=== PATIENT | female | born 1950 | race Caucasian/White ===

== ENCOUNTER 2016-12-17 06:52 | Observation (INO) | payer MEDICARE, MEDICAID ==
[~2016-12-17] VITALS: Ht 160 cm; Wt 80.1 kg
[~2016-12-17 06:52] MED LIST: ALPR2TAB5 PO; ASPI-515 PO; CALC1TAB2 PO; CHOL10003 PO; FERR142T13 PO; FLUO15CR TP; GEMF600T3 PO; GLIM4TAB2 PO; HYDR25TA6 PO; LOSA25TA5 PO; METF10002 PO; METO25TA35 PO; OMEG1CAP24 PO; OMEP40CA6 PO; SIMV40TA3 PO; VITAMIN B12 SL; ZOLP10TA5 PO
[2016-12-17 07:43] VITALS: BP 134/81
[2016-12-17] MEDS ORDERED: LACTATED RINGERS 1,000 ML IV SCH (07:48)
[2016-12-17] MEDS ORDERED: BUPIVACAINE/PF-EPI 0.5% 1:200K ONE (08:00)
[2016-12-17] MEDS ORDERED: FENTANYL PF 250 MCG/5ML ONE (08:58)
[2016-12-17] MEDS ORDERED: MIDAZOLAM 1 MG/ML, 2ML ONE (08:58)
[2016-12-17] MEDS ORDERED: NEOSTIGMINE 1 MG/ML, 10ML ONE (09:21)
[2016-12-17] MEDS ORDERED: GLYCOPYRROLATE 0.2MG/1ML ONE (09:21)
[2016-12-17] MEDS ORDERED: LABETALOL 5MG/ML ONE (09:21)
[2016-12-17] MEDS ORDERED: DEXAMETHASONE 4 MG/ML, 1ML ONE (09:21)
[2016-12-17] MEDS ORDERED: ROCURONIUM 10 MG/ML ONE ×3 (09:21)
[2016-12-17] MEDS ORDERED: CEFOTETAN 2 GM ONE (09:21)
[2016-12-17] MEDS ORDERED: ONDANSETRON 2MG/ML, 2ML ONE (09:21)
[2016-12-17] MEDS ORDERED: PROPOFOL 10 MG/ML, 20ML ONE (09:21)
[2016-12-17] MEDS ORDERED: LABETALOL 5MG/ML, 20ML IV PRN (09:30)
[2016-12-17] MEDS ORDERED: ACETAMINOPHEN 325 MG TABLET PO PRN (09:30)
[2016-12-17] MEDS ORDERED: MEPERIDINE/PF 25MG/0.5ML IVPush PRN (09:30)
[2016-12-17] MEDS ORDERED: ONDANSETRON 2MG/ML, 2ML IVPush PRN ×2 (09:30→14:00)
[2016-12-17] MEDS ORDERED: MIDAZOLAM 1 MG/ML, 2ML IV PRN (09:30)
[2016-12-17] MEDS ORDERED: OXYcodone 5 MG/5 ML ORAL.SOL UDC PO PRN (09:30)
[2016-12-17] MEDS ORDERED: PROMETHAZINE 25 MG/ML, 1ML IV PRN (09:30)
[2016-12-17] MEDS ORDERED: BUPIVACAINE/PF-EPI 0.5% 1:200K INFIL ONE (09:40)
[2016-12-17] MEDS ORDERED: OXYcodone 5 MG/5 ML ORAL.SOL UDC ONE (10:46)
[2016-12-17] MEDS ORDERED: FENTANYL PF 100 MCG/2ML ONE (10:46)
[2016-12-17] MEDS: FENTANYL PF 100 MCG/2ML IV PRN ×3 (10:50→11:14)
[2016-12-17] MEDS ORDERED: ACETAMINOPHEN 325 MG TABLET ONE (10:51)
[2016-12-17] MEDS ORDERED: ACETAMINOPHEN 650 MG/20.3 ML UDC ONE (10:51)
[2016-12-17] MEDS ORDERED: HYDROmorphone 2 MG/ML, 1ML ONE (11:27)
[2016-12-17] MEDS: HYDROmorphone 1 MG/ML, 1ML IV PRN ×4 (11:28→11:57)
[2016-12-17] MEDS ORDERED: IRON DEXTRAN IV PER PHARMACY IV PRN (11:30)
[2016-12-17] MEDS ORDERED: PROMETHAZINE 25 MG/ML, 1ML ONE (11:56)
[2016-12-17] MEDS ORDERED: IRON DEXTRAN COMPLEX 25 MG in SODIUM CHLORIDE 0.9% 50 ML IV ONE (12:00)
[2016-12-17] MEDS ORDERED: IRON DEXTRAN COMPLEX IV ONE (13:00)
[2016-12-17] MEDS ORDERED: SODIUM CHLORIDE 0.9% IV ONE (13:00)
[2016-12-17] MEDS: LACTATED RINGERS 1,000 ML IV SCH (13:19)
[2016-12-17] MEDS: HYDROmorphone 2MG TABLET PO PRN ×3 (13:48→22:34)
[2016-12-17] MEDS ORDERED: EPINEPHRINE 1 MG/ML, 1ML IVPush ONE ×2 (14:00)
[2016-12-17] MEDS ORDERED: HYDROmorphone 2 MG/ML, 1ML IV PRN (14:00)
[2016-12-17] MEDS ORDERED: TRAZODONE 100MG TABLET PO PRN (20:30)
[2016-12-17 21:30] VITALS: BP 133/69
[2016-12-17] MEDS: CALCIUM/VITAMIN D3 250-125 TABLET PO SCH (21:40)
[2016-12-17] MEDS: SIMVASTATIN 40 MG TABLET PO SCH (21:40)
[2016-12-17] MEDS: METOPROLOL TARTRATE 25 MG TABLET PO SCH (21:40)
[2016-12-17] MEDS: metFORMIN 500 MG TABLET PO SCH (21:41)
[2016-12-17] MEDS: GEMFIBROZIL 600 MG TABLET PO SCH (21:42)
[2016-12-18] VITALS: BP 112/63
[2016-12-18] MEDS: LACTATED RINGERS 1,000 ML IV SCH ×2 (01:49→14:19)
[2016-12-18 04:00] VITALS: BP 102/64
[2016-12-18] MEDS: HYDROmorphone 2MG TABLET PO PRN ×4 (05:28→21:42)
[2016-12-18 05:51] LABS: HEMOGLOBIN 8.7 g/dL (11.7-16.4)
[2016-12-18 06:41] LABS: BLOOD UREA NITROGEN 18 mg/dL (7-18)
[2016-12-18 06:52] VITALS: BP 98/54
[2016-12-18 07:38] LABS: ASPARTATE AMINO TRANSFERASE 132 U/L (15-37)
[2016-12-18 07:45] LABS: TOTAL IRON BINDING CAPACITY 763 mcg/dL (250-450)
[2016-12-18 07:53] VITALS: BP 105/63
[2016-12-18] MEDS: LOSARTAN 25MG TABLET PO SCH (07:53)
[2016-12-18] MEDS: METOPROLOL TARTRATE 25 MG TABLET PO SCH ×2 (07:54→20:16)
[2016-12-18] MEDS: HYDROCHLOROTHIAZIDE 25 MG TABLET PO SCH (07:54)
[2016-12-18] MEDS: GEMFIBROZIL 600 MG TABLET PO SCH ×2 (07:58→20:16)
[2016-12-18] MEDS: CHOLECALCIFEROL 1,000 UNIT TABLET PO SCH (07:58)
[2016-12-18] MEDS: metFORMIN 500 MG TABLET PO SCH ×2 (07:58→20:16)
[2016-12-18] MEDS: CALCIUM/VITAMIN D3 250-125 TABLET PO SCH ×2 (07:58→20:16)
[2016-12-18] MEDS: ASPIRIN 81 MG TABLET EC PO SCH (07:58)
[2016-12-18] MEDS: OMEPRAZOLE 20 MG CAPSULE.DR PO SCH (07:59)
[2016-12-18] MEDS: CYANOCOBALAMIN 1,000 MCG TABLET PO SCH (07:59)
[2016-12-18] MEDS: FLUOCINONIDE CRM 0.05%, 15GM TP SCH (08:03)
[2016-12-18] MEDS: FERROUS SULFATE 325 MG TABLET PO SCH (09:21)
[2016-12-18] MEDS: ALBUTEROL/IPRATROPIUM 2.5MG/0.5MG, 3 ML NPPB SCH ×4 (09:30→21:30)
[2016-12-18] MEDS ORDERED: OXYcodone/APAP 5/325MG TABLET PO PRN (10:00)
[2016-12-18] MEDS: KETOROLAC 10MG TABLET PO SCH ×3 (10:17→21:42)
[2016-12-18 13:02] VITALS: BP 104/58
[2016-12-18] MEDS: ALBUTEROL SULFATE 2.5 MG/3 ML NPPB SCH ×2 (19:40→23:00)
[2016-12-18] MEDS: SIMVASTATIN 40 MG TABLET PO SCH (20:16)
[2016-12-18 20:50] VITALS: BP 106/56
[2016-12-19] MEDS: ALBUTEROL/IPRATROPIUM 2.5MG/0.5MG, 3 ML NPPB SCH ×2 (02:00→05:30)
[2016-12-19] MEDS: LACTATED RINGERS 1,000 ML IV SCH ×2 (02:49→15:19)
[2016-12-19] MEDS: ALBUTEROL SULFATE 2.5 MG/3 ML NPPB SCH (03:00)
[2016-12-19 03:36] VITALS: BP 104/55
[2016-12-19] MEDS: KETOROLAC 10MG TABLET PO SCH (03:38)
[2016-12-19 04:49] LABS: HEMOGLOBIN 7.1 g/dL (11.7-16.4)
[2016-12-19 05:04] LABS: BLOOD UREA NITROGEN 32 mg/dL (7-18)
[2016-12-19 07:01] VITALS: BP 91/49
[2016-12-19] MEDS: CALCIUM/VITAMIN D3 250-125 TABLET PO SCH (07:38)
[2016-12-19] MEDS: CYANOCOBALAMIN 1,000 MCG TABLET PO SCH (07:38)
[2016-12-19] MEDS: metFORMIN 500 MG TABLET PO SCH (07:38)
[2016-12-19] MEDS: FERROUS SULFATE 325 MG TABLET PO SCH (07:38)
[2016-12-19] MEDS: OMEPRAZOLE 20 MG CAPSULE.DR PO SCH (07:39)
[2016-12-19] MEDS: GEMFIBROZIL 600 MG TABLET PO SCH (07:39)
[2016-12-19] MEDS: LOSARTAN 25MG TABLET PO SCH ×2 (07:39→07:42)
[2016-12-19] MEDS: ASPIRIN 81 MG TABLET EC PO SCH (07:39)
[2016-12-19] MEDS: METOPROLOL TARTRATE 25 MG TABLET PO SCH (07:40)
[2016-12-19] MEDS: HYDROCHLOROTHIAZIDE 25 MG TABLET PO SCH (07:40)
[2016-12-19] MEDS: CHOLECALCIFEROL 1,000 UNIT TABLET PO SCH (07:41)
[2016-12-19] MEDS: FLUOCINONIDE CRM 0.05%, 15GM TP SCH (07:41)
[2016-12-19] MEDS: HYDROmorphone 2MG TABLET PO PRN ×2 (07:41→15:41)
[2016-12-19] MEDS ORDERED: SODIUM CHLORIDE 0.9%, 500ML IVBOLUS ONE (09:30)
[2016-12-19] MEDS ORDERED: SODIUM CHLORIDE 0.9%, 500ML IV ONE (09:30)
[2016-12-19] MEDS ORDERED: HYDR2TAB13 PO (10:07)
[2016-12-19] MEDS ORDERED: PROM25SU34 PO (10:12)
[2016-12-19 12:17] VITALS: BP 124/60
[2016-12-19] MEDS ORDERED: OMNIPAQUE 350 MG/ML, 100ML BOTTLE ONE (17:30)
[2016-12-21 11:06] LABS: HGB A1C 5.6 %Hb (.)
== END 2016-12-19 18:22 | disposition home or self-care (01) ==
LOC: OUT 06:52 → 4NOR 13:07 → OUT 23:37 → 4NOR 23:37
PROVIDERS: ADMIT Surgery; ATTEND Surgery
DX: K80.10 Calculus of gallbladder with chronic cholecystitis without obstruction (principal); E11.9 Type 2 diabetes mellitus without complications; I10 Essential (primary) hypertension; R09.02 Hypoxemia; J98.11 Atelectasis; D50.9 Iron deficiency anemia, unspecified; D18.03 Hemangioma of intra-abdominal structures; M19.90 Unspecified osteoarthritis, unspecified site; G47.00 Insomnia, unspecified; E78.5 Hyperlipidemia, unspecified; K66.8 Other specified disorders of peritoneum; K66.0 Peritoneal adhesions (postprocedural) (postinfection); Z87.11 Personal history of peptic ulcer disease; Z80.3 Family history of malignant neoplasm of breast; Z80.6 Family history of leukemia
CPT/HCPCS: 36415; 47562; 71010; 71275; 80048; 80053; 82607; 82728; 82746; 82962; 83036; 83540; 83550; 84439; 84443; 85025; 88304; 96365; 96366; G0378; J1100; J1170; J1750; J2250; J2405; J2550; J2704; J2710; J3010; J7050; J7120; Q9967; J3490; S0074

== ENCOUNTER → 2017-01-05 | Outpatient (CLI) | payer MEDICARE, MEDICAID ==
[~2017-01-05] MED LIST changes: +HYDR2TAB13 PO; +PROM25SU34 PO
== END | disposition home or self-care (01) ==
LOC: CFH 08:07
PROVIDERS: ATTEND Family Medicine
DX: N83.291 Other ovarian cyst, right side (principal)
CPT/HCPCS: 76856

== ENCOUNTER 2018-04-07 05:09 | Inpatient (IN) | payer MEDICARE ==
[~2018-04-07] VITALS: Ht 160 cm; Wt 80.0 kg
[~2018-04-07 05:09] MED LIST changes: -HYDR2TAB13 PO; +HYDR2TAB29 PO
[2018-04-07] MEDS ORDERED: METF500T5 PO (05:36)
[2018-04-07] MEDS ORDERED: SODIUM CHLORIDE FLUSH 10ML SYR IVF ONE (06:00)
[2018-04-07] MEDS ORDERED: DIPHENHYDRAMINE 50 MG/ML, 1ML IVPush ONE (06:00)
[2018-04-07] MEDS ORDERED: MORPHINE SULFATE 4 MG/ML, 1ML IVPush PRN ×2 (06:00→18:00)
[2018-04-07] MEDS ORDERED: SODIUM CHLORIDE 0.9% 1,000ML IVBOLUS ONE ×2 (06:00→08:30)
[2018-04-07 06:03] LABS: MEAN CORPUSCULAR HEMOGLOBIN 29.7 pg (27.0-34.8); MEAN CORPUSCULAR HGB CONC 33.8 g/dL (32.4-35.8); MEAN CORPUSCULAR VOLUME 87.7 fL (80-100); MEAN PLATELET VOLUME 7.1 fL (7.4-10.4); PLATELET COUNT 363 x10^3/uL (130-400); RED BLOOD COUNT 3.39 x10^6/uL (3.82-5.3); RED CELL DISTRIBUTION WIDTH 13.1 % (9.6-15.2)
[2018-04-07 06:09] LABS: INTERNATIONAL NORMALIZED RATIO 1.15 (0.93-1.1); PROTHROMBIN TIME 11.9 Seconds (9.6-11.5)
[2018-04-07 06:14] LABS: ALBUMIN 2.4 g/dL (3.4-5.0); ANION GAP 12 mmol/L (5-15); CHLORIDE 95 mmol/L (98-107)
[2018-04-07] MEDS ORDERED: MORPHINE SULFATE 4 MG/ML, 1ML ONE (06:15)
[2018-04-07] MEDS ORDERED: DIPHENHYDRAMINE 50 MG/ML, 1ML ONE (06:15)
[2018-04-07 06:18] LABS: ALANINE AMINOTRANSFERASE 9 U/L (12-78); ALKALINE PHOSPHATASE 93 U/L (45-117); BILIRUBIN,TOTAL 0.4 mg/dL (0.2-1.0); CREATININE 1.15 mg/dL (0.55-1.02); TOTAL PROTEIN 6.4 g/dL (6.4-8.2)
[2018-04-07] MEDS ORDERED: SLOW MAG (06:26)
[2018-04-07] MEDS ORDERED: METO50TA82 PO (06:26)
[2018-04-07] MEDS ORDERED: LOSA50TA6 PO (06:26)
[2018-04-07] MEDS ORDERED: ASPI-515 PO (06:26)
[2018-04-07 06:43] LABS: MD YES
[2018-04-07 06:49] LABS: <RBC MORPHOLOGY> NORMAL; BAND#(MANUAL) 0.58 x10^3/uL; BANDS%(MANUAL) 4 % (0-7); LYMPH#(MANUAL) 2.34 x10^3/uL (1-3.4); LYMPHS% (MANUAL) 16 % (22-44); MONOS#(MANUAL) 1.17 x10^3/uL (0.3-2.7); MONOS% (MANUAL) 8 % (2-9); SEG#(MANUAL) 10.51 x10^3/uL (1.8-6.8); SEGS% (MANUAL) 72 % (42-75)
[2018-04-07 06:50] LABS: <PLATELET ESTIMATE> ADEQUATE; <PLT MORPHOLOGY> NORMAL PLT MORPH
[2018-04-07] MEDS ORDERED: OMNIPAQUE 350 MG/ML, 100ML BOTTLE ONE (07:00)
[2018-04-07] MEDS ORDERED: CEFOTETAN PMX 1GM/50ML 50 ML IV ONE (07:30)
[2018-04-07] MEDS ORDERED: METRONIDAZOLE PMX 500MG/100ML 100 ML IV ONE (07:30)
[2018-04-07] MEDS ORDERED: CEFOTETAN PMX 1GM/50ML 50 ML ONE (07:49)
[2018-04-07] MEDS: INSULIN LISPRO 100 UNITS/ML, PEN MEDIUM DOSE SS SQ-INSULIN SCH ×2 (10:30→16:30)
[2018-04-07] MEDS ORDERED: HYDROmorphone 1 MG/ML, 1ML IV PRN ×2 (10:30→18:00)
[2018-04-07] MEDS ORDERED: ONDANSETRON ODT 4 MG PO PRN (11:00)
[2018-04-07] MEDS: PIPERACILLIN/TAZO/PMX 4.5GM 100 ML IVPB SCH ×2 (12:00→17:45)
[2018-04-07] MEDS: SODIUM CHLORIDE 0.9% 1,000 ML IV SCH ×2 (12:00→20:00)
[2018-04-07] MEDS ORDERED: HYDROmorphone 2 MG/ML, 1ML ONE (12:14)
[2018-04-07 14:30] VITALS: BP 105/63
[2018-04-07] MEDS ORDERED: MIDAZOLAM 1 MG/ML, 2ML ONE (17:39)
[2018-04-07] MEDS ORDERED: FENTANYL PF 250 MCG/5ML ONE (17:39)
[2018-04-07] MEDS ORDERED: ROCURONIUM 10MG/ML,5ML ONE ×2 (17:40→21:50)
[2018-04-07] MEDS ORDERED: PROPOFOL 10 MG/ML, 20ML ONE (17:42)
[2018-04-07] MEDS ORDERED: WATER-INJECTION,STERILE 10 ML IV ONE (17:42)
[2018-04-07] MEDS ORDERED: CEFAZOLIN 1,000 MG ONE ×2 (17:42)
[2018-04-07] MEDS ORDERED: MEPERIDINE/PF 25MG/0.5ML IVPush PRN (18:00)
[2018-04-07] MEDS ORDERED: LABETALOL 5MG/ML, 20ML IV PRN (18:00)
[2018-04-07] MEDS ORDERED: ONDANSETRON ODT 8 MG PO PRN (18:00)
[2018-04-07] MEDS ORDERED: ONDANSETRON 2MG/ML, 2ML IV PRN (18:00)
[2018-04-07] MEDS ORDERED: PROMETHAZINE 12.5 MG SUPP PR ONE (18:00)
[2018-04-07] MEDS ORDERED: PROMETHAZINE 25 MG/ML, 1ML IV PRN (18:00)
[2018-04-07] MEDS ORDERED: FENTANYL PF 100 MCG/2ML IV PRN (18:00)
[2018-04-07] MEDS ORDERED: hydrALAzine 20 MG/ML, 1ML IV PRN (18:00)
[2018-04-07] MEDS ORDERED: OXYcodone 5 MG/5 ML ORAL.SOL UDC PO PRN (18:00)
[2018-04-07] MEDS ORDERED: PROMETHAZINE 25 MG SUPP PR ONE (18:00)
[2018-04-07] MEDS: METOPROLOL TARTRATE 50 MG TABLET PO SCH (18:38)
[2018-04-07 19:15] VITALS: BP 89/47
[2018-04-07] MEDS ORDERED: GLYCOPYRROLATE 0.2MG/1ML, 5ML ONE (19:53)
[2018-04-07] MEDS ORDERED: NEOSTIGMINE 1 MG/ML, 10ML ONE (19:53)
[2018-04-07] MEDS ORDERED: PHENYLEPHRINE 10 MG/ML ONE ×2 (20:10)
[2018-04-07] MEDS ORDERED: VASOPRESSIN 20 UNIT/ML, 1ML ONE (20:19)
[2018-04-07] MEDS ORDERED: ONDANSETRON 2MG/ML, 2ML ONE (20:28)
[2018-04-07] MEDS ORDERED: HYDROmorphone PCA 30 MG/30 ML IV PRN (23:00)
[2018-04-07 23:44] LABS: ANION GAP 11 mmol/L (5-15); CALCIUM 7.9 mg/dL (8.5-10.1); CHLORIDE 102 mmol/L (98-107); CREATININE 1.11 mg/dL (0.55-1.02)
[2018-04-08] MEDS ORDERED: SODIUM CHLORIDE 0.9%, 500ML IVBOLUS PRN
[2018-04-08 00:54] VITALS: BP 90/47
[2018-04-08] MEDS ORDERED: ONDANSETRON ODT 4 MG PO PRN (02:00)
[2018-04-08] MEDS: INSULIN LISPRO 100 UNITS/ML, PEN MEDIUM DOSE SS SQ-INSULIN SCH ×4 (02:10→21:32)
[2018-04-08] MEDS: SODIUM CHLORIDE 0.9% 1,000 ML IV SCH ×4 (02:40→21:27)
[2018-04-08] MEDS: PIPERACILLIN/TAZO/PMX 4.5GM 100 ML IVPB SCH ×4 (02:54→21:27)
[2018-04-08 04:57] LABS: MEAN CORPUSCULAR HEMOGLOBIN 29.7 pg (27.0-34.8); MEAN CORPUSCULAR HGB CONC 33.3 g/dL (32.4-35.8); MEAN CORPUSCULAR VOLUME 89.2 fL (80-100); MEAN PLATELET VOLUME 7.2 fL (7.4-10.4); PLATELET COUNT 309 x10^3/uL (130-400); RED BLOOD COUNT 2.73 x10^6/uL (3.82-5.3); RED CELL DISTRIBUTION WIDTH 13.1 % (9.6-15.2)
[2018-04-08 05:08] LABS: ANION GAP 12 mmol/L (5-15); CALCIUM 7.2 mg/dL (8.5-10.1); CHLORIDE 106 mmol/L (98-107)
[2018-04-08] MEDS: METOPROLOL TARTRATE 50 MG TABLET PO SCH ×2 (05:41→18:19)
[2018-04-08 05:49] LABS: MD YES
[2018-04-08 05:50] LABS: BAND#(MANUAL) 2.06 x10^3/uL; BANDS%(MANUAL) 14 % (0-7); LYMPH#(MANUAL) 1.03 x10^3/uL (1-3.4); LYMPHS% (MANUAL) 7 % (22-44); MONOS#(MANUAL) 0.88 x10^3/uL (0.3-2.7); MONOS% (MANUAL) 6 % (2-9); SEG#(MANUAL) 10.73 x10^3/uL (1.8-6.8); SEGS% (MANUAL) 73 % (42-75)
[2018-04-08 05:51] LABS: <PLATELET ESTIMATE> ADEQUATE; <PLT MORPHOLOGY> NORMAL PLT MORPH; <RBC MORPHOLOGY> NORMAL
[2018-04-08 08:22] VITALS: BP 94/51
[2018-04-08] MEDS: ENOXAPARIN 40 MG/0.4 ML SQ SCH (09:53)
[2018-04-08] MEDS: FAMOTIDINE 20 MG TABLET PO SCH ×2 (09:53→21:30)
[2018-04-08 12:42] VITALS: BP 101/57
[2018-04-08 18:19] VITALS: BP 97/57
[2018-04-09 00:53] VITALS: BP 97/46
[2018-04-09] MEDS: PIPERACILLIN/TAZO/PMX 4.5GM 100 ML IVPB SCH ×4 (03:34→22:03)
[2018-04-09] MEDS: SODIUM CHLORIDE 0.9% 1,000 ML IV SCH ×3 (03:34→17:20)
[2018-04-09] MEDS: INSULIN LISPRO 100 UNITS/ML, PEN MEDIUM DOSE SS SQ-INSULIN SCH ×5 (03:48→21:00)
[2018-04-09 06:12] VITALS: BP 96/60
[2018-04-09] MEDS: METOPROLOL TARTRATE 50 MG TABLET PO SCH ×4 (06:13→19:37)
[2018-04-09 07:15] VITALS: BP 109/61
[2018-04-09] MEDS: FAMOTIDINE 20 MG TABLET PO SCH ×2 (08:31→21:02)
[2018-04-09] MEDS: ENOXAPARIN 40 MG/0.4 ML SQ SCH (08:31)
[2018-04-09] MEDS ORDERED: HYDROmorphone 2MG TABLET PO PRN (11:00)
[2018-04-09 12:21] VITALS: BP 116/56
[2018-04-09 19:20] VITALS: BP 131/57
[2018-04-10 00:46] VITALS: BP 117/67
[2018-04-10] MEDS: SODIUM CHLORIDE 0.9% 1,000 ML IV SCH ×3 (01:22→22:00)
[2018-04-10] MEDS: INSULIN LISPRO 100 UNITS/ML, PEN MEDIUM DOSE SS SQ-INSULIN SCH ×4 (03:00→20:34)
[2018-04-10] MEDS: PIPERACILLIN/TAZO/PMX 4.5GM 100 ML IVPB SCH ×4 (03:44→22:00)
[2018-04-10 05:06] LABS: MEAN CORPUSCULAR HEMOGLOBIN 29.1 pg (27.0-34.8); MEAN CORPUSCULAR HGB CONC 33.3 g/dL (32.4-35.8); MEAN CORPUSCULAR VOLUME 87.2 fL (80-100); MEAN PLATELET VOLUME 6.7 fL (7.4-10.4); PLATELET COUNT 339 x10^3/uL (130-400); RED BLOOD COUNT 2.55 x10^6/uL (3.82-5.3); RED CELL DISTRIBUTION WIDTH 13.3 % (9.6-15.2)
[2018-04-10 05:13] LABS: ALBUMIN 1.4 g/dL (3.4-5.0); ANION GAP 10 mmol/L (5-15); CALCIUM 8.1 mg/dL (8.5-10.1); CHLORIDE 110 mmol/L (98-107)
[2018-04-10 05:18] LABS: ALANINE AMINOTRANSFERASE 26 U/L (12-78); ALKALINE PHOSPHATASE 90 U/L (45-117); BILIRUBIN,TOTAL 0.3 mg/dL (0.2-1.0); CREATININE 0.58 mg/dL (0.55-1.02)
[2018-04-10 06:19] LABS: MD YES
[2018-04-10 06:20] LABS: BAND#(MANUAL) 0.68 x10^3/uL; BANDS%(MANUAL) 8 % (0-7); EOS#(MANUAL) 0.09 x10^3/uL (0.0-0.4); EOS% (MANUAL) 1 % (1-7); LYMPH#(MANUAL) 0.94 x10^3/uL (1-3.4); LYMPHS% (MANUAL) 11 % (22-44); MONOS#(MANUAL) 0.43 x10^3/uL (0.3-2.7); MONOS% (MANUAL) 5 % (2-9); SEG#(MANUAL) 6.38 x10^3/uL (1.8-6.8); SEGS% (MANUAL) 75 % (42-75)
[2018-04-10 06:23] LABS: <PLATELET ESTIMATE> ADEQUATE; <PLT MORPHOLOGY> NORMAL PLT MORPH; <RBC MORPHOLOGY> NORMAL
[2018-04-10 06:43] VITALS: BP 99/52
[2018-04-10] MEDS: ACETAMINOPHEN 325 MG TABLET PO PRN ×2 (09:31→16:52)
[2018-04-10] MEDS: KETOROLAC 30 MG/1 ML IV PRN ×2 (09:31→16:52)
[2018-04-10] MEDS: ENOXAPARIN 40 MG/0.4 ML SQ SCH (09:32)
[2018-04-10] MEDS: FAMOTIDINE 20 MG TABLET PO SCH ×2 (09:32→19:29)
[2018-04-10 09:33] LABS: % IRON SATURATION 39 % (20-55); IRON LEVEL 33 mcg/dL (50-170); TOTAL IRON BINDING CAPACITY 85 mcg/dL (250-450)
[2018-04-10 12:13] VITALS: BP 103/50
[2018-04-10 17:22] VITALS: BP 106/51
[2018-04-10] MEDS: METOPROLOL TARTRATE 50 MG TABLET PO SCH (18:00)
[2018-04-10 20:10] VITALS: BP 106/50
[2018-04-10] MEDS ORDERED: ZOLPIDEM 5MG TABLET PO SCH (21:00)
[2018-04-11 02:25] VITALS: BP 137/51
[2018-04-11] MEDS: PIPERACILLIN/TAZO/PMX 4.5GM 100 ML IVPB SCH ×4 (03:49→22:01)
[2018-04-11] MEDS: INSULIN LISPRO 100 UNITS/ML, PEN MEDIUM DOSE SS SQ-INSULIN SCH ×4 (03:54→21:00)
[2018-04-11 05:33] LABS: ANION GAP 9 mmol/L (5-15); CALCIUM 8.4 mg/dL (8.5-10.1); CHLORIDE 110 mmol/L (98-107)
[2018-04-11 05:35] LABS: CREATININE 0.63 mg/dL (0.55-1.02)
[2018-04-11 05:38] LABS: BASOPHILS # (AUTO) 0.02 x10^3/uL (0-0.1); BASOPHILS % (AUTO) 0 % (0-1); EOSINOPHILS # (AUTO) 0.06 x10^3/uL (0-0.4); EOSINOPHILS % (AUTO) 1 % (1-7); LYMPHOCYTES # (AUTO) 0.56 x10^3/uL (1-3.4); LYMPHOCYTES % (AUTO) 9 % (22-44); MD NO; MEAN CORPUSCULAR HGB CONC 33.4 g/dL (32.4-35.8); MEAN CORPUSCULAR VOLUME 86.8 fL (80-100); MEAN PLATELET VOLUME 6.7 fL (7.4-10.4); MONOCYTES # (AUTO) 0.53 x10^3/uL (0.2-0.8); MONOCYTES % (AUTO) 9 % (2-9); NEUTROPHILS # (AUTO) 5.01 x10^3/uL (1.8-6.8); NEUTROPHILS % (AUTO) 81 % (42-75); PLATELET COUNT 333 x10^3/uL (130-400); RED BLOOD COUNT 2.71 x10^6/uL (3.82-5.3); RED CELL DISTRIBUTION WIDTH 13.2 % (9.6-15.2)
[2018-04-11] MEDS: METOPROLOL TARTRATE 50 MG TABLET PO SCH ×2 (06:14→16:55)
[2018-04-11 07:09] VITALS: BP 114/62
[2018-04-11] MEDS ORDERED: SODIUM CHLORIDE 0.9% 1,000 ML IV SCH (07:30)
[2018-04-11] MEDS: FAMOTIDINE 20 MG TABLET PO SCH ×2 (08:00→21:09)
[2018-04-11] MEDS: ALPRazolam 1MG TABLET PO SCH (08:00)
[2018-04-11] MEDS: LOSARTAN 50MG TABLET PO SCH (08:00)
[2018-04-11] MEDS: metFORMIN 500 MG TABLET PO SCH ×2 (08:00→16:55)
[2018-04-11] MEDS: K-LYTE 25 MEQ TABLET.EFF PO SCH ×3 (08:00→16:55)
[2018-04-11] MEDS: ENOXAPARIN 40 MG/0.4 ML SQ SCH (08:01)
[2018-04-11 12:10] VITALS: BP 116/64
[2018-04-11] MEDS: KETOROLAC 30 MG/1 ML IV PRN (17:05)
[2018-04-11 19:45] VITALS: BP 125/62
[2018-04-11] MEDS: SIMVASTATIN 40 MG TABLET PO SCH (21:09)
[2018-04-11] MEDS: ZOLPIDEM 10MG TABLET PO PRN (22:01)
[2018-04-12 02:37] VITALS: BP 129/64
[2018-04-12] MEDS: PIPERACILLIN/TAZO/PMX 4.5GM 100 ML IVPB SCH ×4 (03:09→21:35)
[2018-04-12] MEDS: INSULIN LISPRO 100 UNITS/ML, PEN MEDIUM DOSE SS SQ-INSULIN SCH ×4 (03:09→21:30)
[2018-04-12 05:54] LABS: BASOPHILS # (AUTO) 0.04 x10^3/uL (0-0.1); BASOPHILS % (AUTO) 1 % (0-1); EOSINOPHILS # (AUTO) 0.13 x10^3/uL (0-0.4); EOSINOPHILS % (AUTO) 2 % (1-7); LYMPHOCYTES # (AUTO) 0.72 x10^3/uL (1-3.4); LYMPHOCYTES % (AUTO) 11 % (22-44); MD NO; MEAN CORPUSCULAR HEMOGLOBIN 28.9 pg (27.0-34.8); MEAN CORPUSCULAR HGB CONC 33.3 g/dL (32.4-35.8); MEAN PLATELET VOLUME 6.8 fL (7.4-10.4); MONOCYTES % (AUTO) 9 % (2-9); NEUTROPHILS # (AUTO) 5.37 x10^3/uL (1.8-6.8); NEUTROPHILS % (AUTO) 78 % (42-75); PLATELET COUNT 420 x10^3/uL (130-400); RED BLOOD COUNT 3.28 x10^6/uL (3.82-5.3); RED CELL DISTRIBUTION WIDTH 13.3 % (9.6-15.2)
[2018-04-12 06:05] LABS: ANION GAP 6 mmol/L (5-15); CALCIUM 9.3 mg/dL (8.5-10.1); CHLORIDE 109 mmol/L (98-107); CREATININE 0.67 mg/dL (0.55-1.02)
[2018-04-12] MEDS: METOPROLOL TARTRATE 50 MG TABLET PO SCH ×2 (06:08→17:30)
[2018-04-12 07:00] VITALS: BP 116/66
[2018-04-12] MEDS: metFORMIN 500 MG TABLET PO SCH ×2 (07:44→16:08)
[2018-04-12] MEDS: ALPRazolam 1MG TABLET PO SCH (07:44)
[2018-04-12] MEDS: K-LYTE 25 MEQ TABLET.EFF PO SCH ×3 (07:44→16:08)
[2018-04-12] MEDS: LOSARTAN 50MG TABLET PO SCH (07:44)
[2018-04-12] MEDS: ENOXAPARIN 40 MG/0.4 ML SQ SCH (07:44)
[2018-04-12] MEDS: FAMOTIDINE 20 MG TABLET PO SCH ×2 (07:44→21:36)
[2018-04-12] MEDS: KETOROLAC 30 MG/1 ML IV PRN (09:18)
[2018-04-12] MEDS: FUROSEMIDE 40 MG TABLET PO SCH (10:20)
[2018-04-12 13:09] VITALS: BP 119/72
[2018-04-12 17:30] VITALS: BP 116/67
[2018-04-12 19:44] VITALS: BP 107/59
[2018-04-12] MEDS: SIMVASTATIN 40 MG TABLET PO SCH (21:36)
[2018-04-13 03:00] VITALS: BP 114/59
[2018-04-13] MEDS: INSULIN LISPRO 100 UNITS/ML, PEN MEDIUM DOSE SS SQ-INSULIN SCH ×4 (03:30→21:52)
[2018-04-13] MEDS: PIPERACILLIN/TAZO/PMX 4.5GM 100 ML IVPB SCH ×4 (03:45→21:45)
[2018-04-13 05:19] LABS: MEAN CORPUSCULAR HEMOGLOBIN 29.7 pg (27.0-34.8); MEAN CORPUSCULAR HGB CONC 33.8 g/dL (32.4-35.8); MEAN CORPUSCULAR VOLUME 87.9 fL (80-100); MEAN PLATELET VOLUME 7.1 fL (7.4-10.4); PLATELET COUNT 370 x10^3/uL (130-400); RED BLOOD COUNT 2.96 x10^6/uL (3.82-5.3); RED CELL DISTRIBUTION WIDTH 13.3 % (9.6-15.2)
[2018-04-13 05:32] LABS: ANION GAP 9 mmol/L (5-15); CALCIUM 8.4 mg/dL (8.5-10.1); CHLORIDE 109 mmol/L (98-107); CREATININE 0.68 mg/dL (0.55-1.02)
[2018-04-13 05:44] LABS: BASOPHILS # (AUTO) 0.03 x10^3/uL (0-0.1); BASOPHILS % (AUTO) 0 % (0-1); EOSINOPHILS # (AUTO) 0.23 x10^3/uL (0-0.4); EOSINOPHILS % (AUTO) 3 % (1-7); LYMPHOCYTES # (AUTO) 0.99 x10^3/uL (1-3.4); LYMPHOCYTES % (AUTO) 13 % (22-44); MD SCAN; MONOCYTES # (AUTO) 0.55 x10^3/uL (0.2-0.8); MONOCYTES % (AUTO) 7 % (2-9); NEUTROPHILS # (AUTO) 5.67 x10^3/uL (1.8-6.8); NEUTROPHILS % (AUTO) 76 % (42-75)
[2018-04-13] MEDS: METOPROLOL TARTRATE 50 MG TABLET PO SCH ×2 (06:25→16:56)
[2018-04-13] MEDS: KETOROLAC 30 MG/1 ML IV PRN ×2 (06:25→21:45)
[2018-04-13 07:10] VITALS: BP 101/77
[2018-04-13] MEDS: metFORMIN 500 MG TABLET PO SCH ×2 (08:51→16:55)
[2018-04-13] MEDS: LOSARTAN 50MG TABLET PO SCH (08:51)
[2018-04-13] MEDS: K-LYTE 25 MEQ TABLET.EFF PO SCH ×3 (08:51→16:56)
[2018-04-13] MEDS: FAMOTIDINE 20 MG TABLET PO SCH ×2 (08:51→21:44)
[2018-04-13] MEDS: ALPRazolam 1MG TABLET PO SCH (08:52)
[2018-04-13] MEDS: ENOXAPARIN 40 MG/0.4 ML SQ SCH (08:52)
[2018-04-13] MEDS: FUROSEMIDE 40 MG TABLET PO SCH (08:52)
[2018-04-13 14:30] VITALS: BP 114/55
[2018-04-13 16:57] VITALS: BP 118/55
[2018-04-13 19:30] VITALS: BP 132/73
[2018-04-13] MEDS: SIMVASTATIN 40 MG TABLET PO SCH (21:45)
[2018-04-13] MEDS: ZOLPIDEM 10MG TABLET PO PRN (21:45)
[2018-04-14 02:00] VITALS: BP 130/67
[2018-04-14] MEDS: PIPERACILLIN/TAZO/PMX 4.5GM 100 ML IVPB SCH ×5 (03:51→22:20)
[2018-04-14] MEDS: INSULIN LISPRO 100 UNITS/ML, PEN MEDIUM DOSE SS SQ-INSULIN SCH ×4 (03:52→22:42)
[2018-04-14] MEDS: METOPROLOL TARTRATE 50 MG TABLET PO SCH ×2 (06:31→16:56)
[2018-04-14 07:20] VITALS: BP 124/58
[2018-04-14] MEDS: ALPRazolam 1MG TABLET PO SCH (08:52)
[2018-04-14] MEDS: LOSARTAN 50MG TABLET PO SCH (08:52)
[2018-04-14] MEDS: metFORMIN 500 MG TABLET PO SCH ×2 (08:52→15:47)
[2018-04-14] MEDS: FUROSEMIDE 40 MG TABLET PO SCH (08:52)
[2018-04-14] MEDS: FAMOTIDINE 20 MG TABLET PO SCH ×2 (08:52→22:19)
[2018-04-14] MEDS: K-LYTE 25 MEQ TABLET.EFF PO SCH ×3 (08:52→15:47)
[2018-04-14] MEDS: ENOXAPARIN 40 MG/0.4 ML SQ SCH (10:51)
[2018-04-14 13:05] VITALS: BP 124/60
[2018-04-14] MEDS ORDERED: BACITRACIN OINT 500U/GM, 15 GM ONE (15:51)
[2018-04-14] MEDS ORDERED: NEOMY/POLYMYXIN B GU IRR. 1 ML IRRIG ONE (15:52)
[2018-04-14] MEDS ORDERED: BACITRACIN 50,000 UNIT ONE (15:52)
[2018-04-14] MEDS ORDERED: MIDAZOLAM 1 MG/ML, 2ML ONE (16:18)
[2018-04-14] MEDS ORDERED: FENTANYL PF 250 MCG/5ML ONE (16:18)
[2018-04-14] MEDS ORDERED: PROPOFOL 10 MG/ML, 20ML ONE (16:29)
[2018-04-14] MEDS ORDERED: ONDANSETRON 2MG/ML, 2ML ONE (16:29)
[2018-04-14] MEDS ORDERED: DEXAMETHASONE 4 MG/ML, 1ML ONE (16:29)
[2018-04-14] MEDS ORDERED: ROCURONIUM 10 MG/ML,10ML ONE (16:29)
[2018-04-14] MEDS ORDERED: SUGAMMADEX 200 MG/2 ML IVPush ONE (16:49)
[2018-04-14] MEDS ORDERED: PROMETHAZINE 25 MG/ML, 1ML IV PRN (17:00)
[2018-04-14] MEDS ORDERED: hydrALAzine 20 MG/ML, 1ML IV PRN (17:00)
[2018-04-14] MEDS ORDERED: FENTANYL PF 100 MCG/2ML IV PRN (17:00)
[2018-04-14] MEDS ORDERED: MORPHINE SULFATE 4 MG/ML, 1ML IVPush PRN (17:00)
[2018-04-14] MEDS ORDERED: OXYcodone 5 MG/5 ML ORAL.SOL UDC PO PRN (17:00)
[2018-04-14] MEDS ORDERED: ALBUTEROL SULFATE 2.5 MG/3 ML NPPB PRN (17:00)
[2018-04-14] MEDS ORDERED: LABETALOL 5MG/ML, 20ML IV PRN (17:00)
[2018-04-14] MEDS ORDERED: ACETAMINOPHEN 325 MG TABLET PO PRN (17:00)
[2018-04-14] MEDS ORDERED: LORazepam 2 MG/ML, 1ML IVPush PRN (17:00)
[2018-04-14] MEDS ORDERED: KETOROLAC 30 MG/1 ML IV PRN (17:00)
[2018-04-14] MEDS ORDERED: HYDROmorphone 2 MG/ML, 1ML ONE (17:30)
[2018-04-14] MEDS: HYDROmorphone 2 MG/ML, 1ML IV PRN ×2 (17:32→17:45)
[2018-04-14] MEDS ORDERED: FENTANYL PF 100 MCG/2ML IVPush PRN (19:00)
[2018-04-14 21:56] VITALS: BP 102/66
[2018-04-14] MEDS: SIMVASTATIN 40 MG TABLET PO SCH (22:19)
[2018-04-14] MEDS: OXYcodone IR 5MG TABLET PO PRN (22:20)
[2018-04-15 00:23] VITALS: BP 89/52
[2018-04-15 03:37] VITALS: BP 102/56
[2018-04-15] MEDS: INSULIN LISPRO 100 UNITS/ML, PEN MEDIUM DOSE SS SQ-INSULIN SCH ×4 (04:38→21:30)
[2018-04-15] MEDS: PIPERACILLIN/TAZO/PMX 4.5GM 100 ML IVPB SCH ×4 (04:43→23:34)
[2018-04-15] MEDS: OXYcodone IR 5MG TABLET PO PRN ×2 (05:23→20:08)
[2018-04-15] MEDS: METOPROLOL TARTRATE 50 MG TABLET PO SCH ×2 (05:32→17:03)
[2018-04-15] MEDS: metFORMIN 500 MG TABLET PO SCH ×2 (08:00→17:12)
[2018-04-15] MEDS: K-LYTE 25 MEQ TABLET.EFF PO SCH ×3 (08:00→17:00)
[2018-04-15] MEDS ORDERED: metFORMIN 500 MG TABLET PO SCH (08:00)
[2018-04-15] MEDS: LOSARTAN 50MG TABLET PO SCH (08:19)
[2018-04-15] MEDS: ENOXAPARIN 40 MG/0.4 ML SQ SCH (08:19)
[2018-04-15] MEDS: HYDROCHLOROTHIAZIDE 25 MG TABLET PO SCH (08:19)
[2018-04-15 09:21] VITALS: BP 120/67
[2018-04-15] MEDS: ALPRazolam 1MG TABLET PO SCH (09:26)
[2018-04-15] MEDS: MAGNESIUM CHLORIDE 64 MG TABLET.DR PO SCH (09:26)
[2018-04-15] MEDS: GEMFIBROZIL 600 MG TABLET PO SCH ×2 (09:27→21:41)
[2018-04-15] MEDS: FAMOTIDINE 20 MG TABLET PO SCH ×2 (09:27→21:42)
[2018-04-15 14:33] VITALS: BP 96/54
[2018-04-15 19:41] VITALS: BP 110/60
[2018-04-15] MEDS: SIMVASTATIN 40 MG TABLET PO SCH (21:41)
[2018-04-15] MEDS: ZOLPIDEM 10MG TABLET PO PRN (21:41)
[2018-04-16] VITALS (13 sets, daily range): BP systolic 99–134; BP diastolic 56–76
[2018-04-16] MEDS: INSULIN LISPRO 100 UNITS/ML, PEN MEDIUM DOSE SS SQ-INSULIN SCH ×4 (03:30→21:11)
[2018-04-16] MEDS: METOPROLOL TARTRATE 50 MG TABLET PO SCH ×2 (05:22→17:40)
[2018-04-16] MEDS: PIPERACILLIN/TAZO/PMX 4.5GM 100 ML IVPB SCH ×4 (05:22→23:15)
[2018-04-16 05:40] LABS: MEAN CORPUSCULAR HEMOGLOBIN 30.1 pg (27.0-34.8); MEAN CORPUSCULAR VOLUME 88.3 fL (80-100); MEAN PLATELET VOLUME 7.4 fL (7.4-10.4); PLATELET COUNT 467 x10^3/uL (130-400); RED BLOOD COUNT 1.84 x10^6/uL (3.82-5.3); RED CELL DISTRIBUTION WIDTH 13.6 % (9.6-15.2)
[2018-04-16 06:19] LABS: BASOPHILS # (AUTO) 0.03 x10^3/uL (0-0.1); BASOPHILS % (AUTO) 1 % (0-1); EOSINOPHILS # (AUTO) 0.07 x10^3/uL (0-0.4); EOSINOPHILS % (AUTO) 1 % (1-7); LYMPHOCYTES # (AUTO) 1.16 x10^3/uL (1-3.4); LYMPHOCYTES % (AUTO) 19 % (22-44); MD SCAN; MONOCYTES # (AUTO) 0.49 x10^3/uL (0.2-0.8); MONOCYTES % (AUTO) 8 % (2-9); NEUTROPHILS # (AUTO) 4.43 x10^3/uL (1.8-6.8); NEUTROPHILS % (AUTO) 72 % (42-75)
[2018-04-16 07:40] LABS: CLOSTRIDIUM DIFFICILE ANTIGEN NEGATIVE; CLOSTRIDIUM DIFFICILE TOXIN NEGATIVE (Negative)
[2018-04-16] MEDS: ENOXAPARIN 40 MG/0.4 ML SQ SCH (09:00)
[2018-04-16] MEDS: OXYcodone IR 5MG TABLET PO PRN ×2 (09:47→20:04)
[2018-04-16] MEDS: GEMFIBROZIL 600 MG TABLET PO SCH ×2 (09:48→20:42)
[2018-04-16] MEDS: MAGNESIUM CHLORIDE 64 MG TABLET.DR PO SCH (09:49)
[2018-04-16] MEDS: ALPRazolam 1MG TABLET PO SCH (09:49)
[2018-04-16] MEDS: metFORMIN 500 MG TABLET PO SCH ×2 (09:50→17:36)
[2018-04-16] MEDS: K-LYTE 25 MEQ TABLET.EFF PO SCH ×3 (09:50→17:35)
[2018-04-16] MEDS: LOSARTAN 50MG TABLET PO SCH (09:50)
[2018-04-16] MEDS: FAMOTIDINE 20 MG TABLET PO SCH ×2 (09:51→20:42)
[2018-04-16] MEDS: HYDROCHLOROTHIAZIDE 25 MG TABLET PO SCH (09:51)
[2018-04-16] MEDS ORDERED: FUROSEMIDE 40 MG/4 ML IV ONE (10:30)
[2018-04-16] MEDS: SIMVASTATIN 40 MG TABLET PO SCH (20:42)
[2018-04-16] MEDS: ZOLPIDEM 10MG TABLET PO PRN (21:29)
[2018-04-17 01:03] VITALS: BP 114/60
[2018-04-17] MEDS: INSULIN LISPRO 100 UNITS/ML, PEN MEDIUM DOSE SS SQ-INSULIN SCH ×2 (03:30→09:30)
[2018-04-17 05:13] VITALS: BP 127/62
[2018-04-17] MEDS: PIPERACILLIN/TAZO/PMX 4.5GM 100 ML IVPB SCH ×2 (05:15→11:22)
[2018-04-17] MEDS: METOPROLOL TARTRATE 50 MG TABLET PO SCH (05:15)
[2018-04-17 05:37] LABS: ANION GAP 10 mmol/L (5-15); CALCIUM 8.5 mg/dL (8.5-10.1); CHLORIDE 108 mmol/L (98-107)
[2018-04-17 05:39] LABS: CREATININE 0.65 mg/dL (0.55-1.02)
[2018-04-17 05:40] LABS: BASOPHILS # (AUTO) 0.03 x10^3/uL (0-0.1); BASOPHILS % (AUTO) 1 % (0-1); EOSINOPHILS # (AUTO) 0.05 x10^3/uL (0-0.4); EOSINOPHILS % (AUTO) 1 % (1-7); LYMPHOCYTES # (AUTO) 1.26 x10^3/uL (1-3.4); LYMPHOCYTES % (AUTO) 23 % (22-44); MD NO; MEAN CORPUSCULAR HGB CONC 34.5 g/dL (32.4-35.8); MEAN CORPUSCULAR VOLUME 83.9 fL (80-100); MEAN PLATELET VOLUME 7.4 fL (7.4-10.4); MONOCYTES # (AUTO) 0.63 x10^3/uL (0.2-0.8); MONOCYTES % (AUTO) 11 % (2-9); NEUTROPHILS # (AUTO) 3.63 x10^3/uL (1.8-6.8); NEUTROPHILS % (AUTO) 65 % (42-75); PLATELET COUNT 494 x10^3/uL (130-400); RED BLOOD COUNT 2.86 x10^6/uL (3.82-5.3); RED CELL DISTRIBUTION WIDTH 15.3 % (9.6-15.2)
[2018-04-17 07:09] VITALS: BP 132/74
[2018-04-17] MEDS: ALPRazolam 1MG TABLET PO SCH (07:58)
[2018-04-17] MEDS: GEMFIBROZIL 600 MG TABLET PO SCH (07:58)
[2018-04-17] MEDS: HYDROCHLOROTHIAZIDE 25 MG TABLET PO SCH (07:58)
[2018-04-17] MEDS: metFORMIN 500 MG TABLET PO SCH (07:59)
[2018-04-17] MEDS: MAGNESIUM CHLORIDE 64 MG TABLET.DR PO SCH (07:59)
[2018-04-17] MEDS: LOSARTAN 50MG TABLET PO SCH (07:59)
[2018-04-17] MEDS: FAMOTIDINE 20 MG TABLET PO SCH (07:59)
[2018-04-17] MEDS: K-LYTE 25 MEQ TABLET.EFF PO SCH ×2 (08:00→11:22)
[2018-04-17] MEDS: OXYcodone IR 5MG TABLET PO PRN (08:08)
[2018-04-17 15:05] VITALS: BP 152/74
== END 2018-04-17 16:30 | disposition home or self-care (01) | DRG 902 ==
LOC: ED 06:41 → EDIP 07:49 → 3NE 08:40 → 4NOR 23:42 → DCLOUNGE 04-17 16:14
PROVIDERS: ADMIT Surgery; ATTEND Surgery
PROC: 0WPF0JZ Removal of Synthetic Substitute from Abdominal Wall, Open Approach (ICD-10-PCS; 2018-04-07)
PROC: 0DN80ZZ Release Small Intestine, Open Approach (ICD-10-PCS; 2018-04-07)
PROC: 0WUF0JZ Supplement Abdominal Wall with Synthetic Substitute, Open Approach (ICD-10-PCS; 2018-04-07)
PROC: 0DB80ZZ Excision of Small Intestine, Open Approach (ICD-10-PCS; 2018-04-07)
PROC: 30233N1 Transfusion of Nonautologous Red Blood Cells into Peripheral Vein, Percutaneous Approach (ICD-10-PCS; 2018-04-07)
PROC: 0HX7XZZ Transfer Abdomen Skin, External Approach (ICD-10-PCS; 2018-04-14)
PROC: 0JB80ZZ Excision of Abdomen Subcutaneous Tissue and Fascia, Open Approach (ICD-10-PCS; principal; 2018-04-14 15:30)
DX: T85.79XA Infection and inflammatory reaction due to other internal prosthetic devices, implants and grafts, initial encounter (principal); L02.211 Cutaneous abscess of abdominal wall; K63.2 Fistula of intestine; E44.0 Moderate protein-calorie malnutrition; E87.2 Acidosis; E87.1 Hypo-osmolality and hyponatremia; E61.1 Iron deficiency; Z68.31 Body mass index [BMI] 31.0-31.9, adult; D64.9 Anemia, unspecified; E11.9 Type 2 diabetes mellitus without complications; E78.5 Hyperlipidemia, unspecified; I10 Essential (primary) hypertension; K43.2 Incisional hernia without obstruction or gangrene; N28.9 Disorder of kidney and ureter, unspecified; Y83.8 Other surgical procedures as the cause of abnormal reaction of the patient, or of later complication, without mention of misadventure at the time of the procedure; Y92.89 Other specified places as the place of occurrence of the external cause; Z87.891 Personal history of nicotine dependence
CPT/HCPCS: 36415; 71045; 74177; 80048; 80053; 82962; 83540; 83550; 83605; 83690; 85014; 85018; 85025; 85610; 85730; 86850; 86900; 86923; 87040; 87070; 87075; 87077; 87186; 87205; 87324; 88300; 88304; 88307; 93005; J0690; J1100; J1170; J1650; J1885; J1940; J2250; J2405; J2543; J2704; J2710; J3010; J3490; Q9967; C1781; J1200; J1815; J2370; J7030; P9016; S0074

== ENCOUNTER → 2018-07-20 | Outpatient (CLI) | payer MEDICARE ==
[~2018-07-20] MED LIST changes: -GEMF600T3 PO; +GEMF600T4 PO; -LOSA25TA5 PO; +LOSA25TA6 PO; +LOSA50TA7 PO; +METF500T17 PO; +METO50TA82 PO; +SLOW MAG
== END | disposition home or self-care (01) ==
LOC: CFH 13:12
PROVIDERS: ATTEND Family Medicine
DX: M47.892 Other spondylosis, cervical region (principal)
CPT/HCPCS: 72050; 72072

== ENCOUNTER → 2018-11-24 | Outpatient (CLI) | payer MEDICARE ==
[~2018-11-24] MED LIST changes: -GEMF600T4 PO; +GEMF600T8 PO; +LOSA25TA25 PO; -LOSA25TA6 PO; +LOSA50TA14 PO; -LOSA50TA7 PO
== END | disposition home or self-care (01) ==
LOC: CFH 07:12
PROVIDERS: ATTEND Family Medicine
DX: K43.9 Ventral hernia without obstruction or gangrene (principal); R10.9 Unspecified abdominal pain
CPT/HCPCS: 76705

== ENCOUNTER → 2019-01-09 | Outpatient (CLI) | payer MEDICARE ==
[2019-01-09 16:04] LABS: BASOPHILS # (AUTO) 0.03 x10^3/uL (0-0.1); BASOPHILS % (AUTO) 1 % (0-1); EOSINOPHILS # (AUTO) 0.07 x10^3/uL (0-0.4); EOSINOPHILS % (AUTO) 1 % (1-7); LYMPHOCYTES # (AUTO) 1.48 x10^3/uL (1-3.4); LYMPHOCYTES % (AUTO) 26 % (22-44); MD NO; MEAN CORPUSCULAR HEMOGLOBIN 30.9 pg (27.0-34.8); MEAN CORPUSCULAR HGB CONC 33.9 g/dL (32.4-35.8); MEAN CORPUSCULAR VOLUME 91.1 fL (80-100); MEAN PLATELET VOLUME 10.1 fL (7.4-10.4); MONOCYTES # (AUTO) 0.49 x10^3/uL (0.2-0.8); MONOCYTES % (AUTO) 8 % (2-9); NEUTROPHILS # (AUTO) 3.74 x10^3/uL (1.8-6.8); NEUTROPHILS % (AUTO) 64 % (42-75); PLATELET COUNT 199 x10^3/uL (130-400); RED BLOOD COUNT 3.94 x10^6/uL (3.82-5.3); RED CELL DISTRIBUTION WIDTH 13.4 % (9.6-15.2)
== END | disposition home or self-care (01) ==
LOC: CFH 12:57
PROVIDERS: ATTEND Family Medicine
DX: M65.231 Calcific tendinitis, right forearm (principal)
CPT/HCPCS: 36415; 82550; 85025; 85651